=== PATIENT | male | born 1945 | race Caucasian/White ===

== ENCOUNTER 2022-10-03 08:36 | Emergency (ER) | payer MEDICARE ==
[~2022-10-03] VITALS: Ht 170.2 cm; Wt 68.2 kg
[2022-10-03 09:00] VITALS: BP 129/70
[2022-10-03] MEDS ORDERED: ibuprofen 200mg tablet PO ONE (10:15)
[2022-10-03] MEDS ORDERED: ORPH100T4 PO (10:36)
== END 2022-10-03 10:59 | disposition home or self-care (01) ==
LOC: ER 08:37
DX: M79.652 Pain in left thigh (principal); W19.XXXA Unspecified fall, initial encounter; Y93.89 Activity, other specified; Y92.89 Other specified places as the place of occurrence of the external cause; Y99.8 Other external cause status
CPT/HCPCS: 73502; 73552; 99284